=== PATIENT | male | born 1990 | race Two or more races ===

== ENCOUNTER 2022-01-02 06:52 | Emergency (ER) | payer OTHER ==
[~2022-01-02] VITALS: Ht 177.8 cm; Wt 81.8 kg
[2022-01-02 08:24] VITALS: BP 140/82
[2022-01-02] MEDS ORDERED: olanzapine 10mg tablet PO ONE (08:50)
[2022-01-02] MEDS ORDERED: quetiapine 100mg tablet PO ONE (08:54)
[2022-01-02] MEDS ORDERED: OLAN-1 PO (08:56)
[2022-01-02] MEDS ORDERED: QUET50TA PO (08:56)
--- NOTE | 2022-01-05 09:18 | NUR ---
Received a phone call from patient and he got my card from the ER. Patient is interested in going to an inpatient rehab. Patient has out of counts include 234 beds at the [facility] that doesn't have any substance use resources. Patient is currently switching his [facility] to [facility]. Patient was interested in rehabs that he can make payments to in the meantime while waiting for his [facility] to switch. I gave patient [facility] phone number to call and told him to call me back with any questions.
== END 2022-01-02 09:30 | disposition home or self-care (01) ==
LOC: ER 06:52
DX: F15.10 Other stimulant abuse, uncomplicated (principal); F22 Delusional disorders; F17.210 Nicotine dependence, cigarettes, uncomplicated; F41.9 Anxiety disorder, unspecified; Z59.00 Homelessness unspecified; Z56.0 Unemployment, unspecified; Z79.899 Other long term (current) drug therapy
CPT/HCPCS: 99283